=== PATIENT | female | born 1950 | race Caucasian/White ===

== ENCOUNTER 2017-12-01 16:03 | Inpatient (IN) | payer OTHER ==
[~2017-12-01] VITALS: Ht 167.6 cm; Wt 97.5 kg
[~2017-12-01 16:03] MED LIST: ACET500 PO; Aspirin EC325 MG PO; IBUP800 PO; Lisinopril2.5 MG PO; Roxicodone5 MG PO
[2018-01-17 05:26] LABS: BASOPHILS ABSOLUTE AUTO 0.02 K/mm3 (0.00-0.23); BASOPHILS PERCENT AUTO 0 % (0-2); EOSINOPHILS ABSOLUTE AUTO 0.01 K/mm3 (0.00-0.68); EOSINOPHILS PERCENT AUTO 0 % (0-6); Hematocrit 31.2 % (33.0-51.0); Hemoglobin 10.2 g/dL (11.5-16.0); IMMATURE GRAN ABSOLUTE AUTO 0.04 K/mm3 (0.00-0.10); IMMATURE GRAN PERCENT AUTO 0 % (0-1); LYMPHOCYTES ABSOLUTE AUTO 1.12 K/mm3 (0.84-5.20); LYMPHOCYTES PERCENT AUTO 10 % (21-46); MONOCYTES ABSOLUTE AUTO 0.83 K/mm3 (0.16-1.47); MONOCYTES PERCENT AUTO 8 % (4-13); Mean Corpuscular HGB 28.6 pg (26.0-34.0); Mean Corpuscular HGB Conc 32.7 g/dL (31.5-36.5); Mean Corpuscular Volume 87 fL (80-100); NEUTROPHILS ABSOLUTE AUTO 8.91 K/mm3 (1.96-9.15); NEUTROPHILS PERCENT AUTO 82 % (41-73); Platelet Count 285 K/mm3 (150-400); RDW Standard Deviation 41.1 fL (35.1-46.3); Red Blood Cell Count 3.57 M/mm3 (3.80-5.20); White Blood Cell Count 10.93 K/mm3 (4.00-11.30)
[2018-01-17 05:52] LABS: Anion Gap 7 mmol/L (6-16); Blood Urea Nitrogen 16 mg/dL (8-24); Bun/Creatinine Ratio 21.9 (12.0-20.0); CO2, Blood 25 mmol/L (21-32); Calcium, Blood 7.9 mg/dL (8.5-10.1); Chloride, Blood 107 mmol/L (98-108); Creatinine, Blood 0.73 mg/dL (0.40-1.00); Glomerular Filtration Rate >60 (60-); Glucose, Blood 116 mg/dL (70-99); Magnesium, Blood 1.9 mg/dL (1.6-2.4); Potassium, Blood 4.2 mmol/L (3.5-5.5); Sodium, Blood 139 mmol/L (136-145)
[2018-01-17] MEDS ORDERED: ASPI325EC PO (10:08)
[2018-01-17] MEDS ORDERED: OXYC5 PO (10:09)
== END 2018-01-17 12:23 | disposition home or self-care (01) | DRG 470 ==
LOC: SURS 01-16 06:00 → PRE IP 01-16 07:30 → SURS 01-16 11:52
PROVIDERS: Orthopaedic Surgery
PROC: 0SRB04A Replacement of Left Hip Joint with Ceramic on Polyethylene Synthetic Substitute, Uncemented, Open Approach (ICD-10-PCS; principal; 2018-01-16 07:30)
DX: M16.12 Unilateral primary osteoarthritis, left hip (principal); I10 Essential (primary) hypertension; E66.9 Obesity, unspecified; Z68.34 Body mass index [BMI] 34.0-34.9, adult
CPT/HCPCS: 36415; 72170; 80048; 83735; 85025; 88300; 97110; 97116; 97162; 97530; C1769; C1776; G8978; G8979; J0171; J0690; J0735; J1100; J1885; J2250; J2405; J2710; J2795; J3010; J7120

== ENCOUNTER → 2024-01-30 | Outpatient (CLI) | payer OTHER ==
[~2024-01-30] MED LIST changes: +ASPI325EC PO; +LISI5 PO; +OXYC5 PO
[2024-01-30 14:23] LABS: Stool Occult Bld Immuno 1 Negative (NEGATIVE)
== END ==
LOC: LAB SHORT 07:30 → LAB 07:30
PROVIDERS: Family Medicine
DX: Z12.11 Encounter for screening for malignant neoplasm of colon (principal)
CPT/HCPCS: G0328